=== PATIENT | female | born 1945 | race Caucasian/White ===

== ENCOUNTER 2016-04-28 09:13 | Inpatient (IN) | payer MEDICARE ==
[2016-04-24 15:36] LABS: BASOPHILS 0.4 %; BASOPHILS ABSOLUTE 0.02 10/3/uL (0.0-0.16); EOSINOPHILS 3.2 %; EOSINOPHILS ABSOLUTE 0.16 10/3/uL (0.0-0.53); HEMATOCRIT 37.1 % (36.0-48.0); IMMATURE GRANULOCYTES 0.2 %; IMMATURE GRANULOCYTES ABSOLUTE 0.01 10/3/uL (0.0-0.11); LYMPHOCYTES ABSOLUTE 1.99 10/3/uL (0.67-4.30); MEAN CORPUS HGB CONC 32.3 g/dL (32.0-36.0); MEAN CORPUSCULAR VOLUME 86.5 fL (80-100); MEAN PLATELET VOLUME 10.2 fL (9.2-13.0); MONOCYTES 15.5 %; MONOCYTES ABSOLUTE 0.77 10/3/uL (0.21-1.20); NEUTROPHILS 40.7 %; NEUTROPHILS ABSOLUTE 2.02 10/3/uL (2.02-8.40); PLATELET COUNT 151 10/3/uL (150-400); RBC DISTRIBUTION WIDTH 14.4 % (12.0-16.0); RED CELL COUNT 4.29 10/6/uL (4.0-5.6)
[2016-04-24 15:37] LABS: MANUAL DIFF NO %
[2016-04-24 15:50] LABS: INTERNATIONAL NORMAL RATI 1.1 UNITS (-); PROTIME (NOT ORD) 14.1 SEC (12.0-14.5)
[2016-04-24 15:54] LABS: % IRON SAT 32 % (20-50); ALBUMIN 3.2 G/DL (3.5-5.0); ALKALINE PHOSPHATASE 65 U/L (45-117); BUN (BLOOD UREA NITROGEN) 16 MG/DL (6-23); CALCIUM, SERUM 8.4 MG/DL (8.5-10.4); CHLORIDE, SERUM 109 MMOL/L (96-112); CO2 (CARBON DIOXIDE) 29 MMOL/L (24-34); CREATININE 0.86 MG/DL (0.55-1.02); GFR AFRICAN AMERICAN 78 ML/MIN (>=60); GFR NON AFRICAN AMERICAN 67 ML/MIN (>=60); GLOBULIN 3.1 G/DL (2.5-4.1); GLUCOSE, SERUM 113 MG/DL (60-99); IRON BINDING CAPACITY 298 MCG/DL (225-410); IRON, SERUM 96 MCG/DL (35-150); POTASSIUM, SERUM 3.6 MMOL/L (3.5-5.3); SGOT(AST) 18 U/L (5-40); SGPT(ALT) 23 U/L (5-65); SODIUM, SERUM 146 MMOL/L (135-148); TOTAL BILIRUBIN 0.5 MG/DL (0-1.2); TOTAL PROTEIN 6.3 G/DL (6.0-8.5)
[2016-04-24 16:15] LABS: ASCORBIC ACID (UR NOT ORDER) NEG (NEG); BILIRUBIN, URINE NEGATIVE (NEG); KETONE, URINE NEGATIVE (NEG); LEUKOCYTE ESTERASE(NOT OR NEG (NEG); WBC (NOT ORDERED) (RFLEX) 1 (0-5)
--- NOTE | ~2016-04-28 | DS ---
Discharge Summary [facility] [address] [place]. [address] NAME: JOHAN RODRÍGUEZ : 43 STATUS : DIS IN PAT#: [id number] AGE: 71 ADM/REG DATE : 04/28/16 MR#: [id number] REPORT SERV DATE: 05/09/16 DICTATED BY: KAYLI PATEL DATE: 05/08/16 REPORT STATUS : Draft TRANSCRIBED BY: FARA DATE: 05/08/16 Data Collection from hospitalization DISCHARGE DIAGNOSES: 1. Coronary artery disease, status post coronary artery bypass. 2. Hypertension. 3. Hyperlipidemia. 4. Hypothyroidism. 5. Diastolic heart failure. CONSULTATIONS: None. PROCEDURES PERFORMED: Coronary artery bypass grafting x5 using left mammary artery and saphenous vein from the right leg harvested endoscopically as graft and transesophageal echocardiogram on 04/28/2016. PATHOLOGY: Left mammary lymph node - benign lymph node with lipogranulomatous. No metastatic malignancy or lymphoproliferative neoplasm. MEDICATIONS: Vitamin C 1000 mg twice a day, aspirin 81 mg daily, Lipitor 40 mg at bedtime, Coreg 3.125 mg twice a day, vitamin D3 5000 units daily, Advil 200 mg every four hours as needed, Synthroid 50 mcg daily, fish oil 1600 mg daily, Percocet 5/325 one tablet every four hours as needed, and turmeric as instructed. She was instructed not to continue Imdur. CONDITION AT DISCHARGE: Stable. DISPOSITION: The patient was discharged home on an 1800-calorie low-cholesterol, low-sodium, cardiac/diabetic diet with no concentrated carbohydrates and activities as instructed. She would follow up with Kd Guaman on 05/29/2016. She would follow up with Dr. Crawley on 05/26/2016. She would follow up with Dr. Pineda Denton on 05/09/2016. HOSPITAL COURSE: This is a 71-year-old female who is very active. She has recently had some shortness of breath with activity and also has a positive family history of coronary artery disease and myocardial infarction. She had a positive stress echo and had undergone a cardiac catheterization. This had shown multivessel disease, severe distal left main stenosis, and [id number] LAD, circumflex first diagonal lesion obtuse marginal 1 plus the PDA the lesion, and ejection fraction was approximately 45% on the stress echo. It was felt that the patient would need to undergo coronary artery bypass grafting. She was admitted to the hospital at this time for further evaluation and treatment. Upon admission, she was taken to the operating room where she underwent the above-mentioned procedure. She tolerated this well, and there were no complications. On postop day #1, she was up sitting in a chair. She did have a decrease in heart rate with getting up. She was on the pacer. Anderson catheter was in place. Chest x-ray showed mild left base atelectasis. White count was 20. On 04/30/2016, her lungs were clear. Her abdomen was soft and nontender. Her incisions looked okay. She had no edema. She was transferred to the floor. Pacing wires were removed. The next day, she continued to do well. White count was 12.5. Discharge planning was performed. Leukocytosis was resolving. On 05/02/2016, she had no Discharge Summary [address] [address] NAME: JOHAN RODRÍGUEZ : 43 STATUS : DIS IN [facility]#: [id number] AGE: 71 ADM/REG DATE : 04/28/16 MR#: [id number] REPORT SERV DATE: 05/09/16 DICTATED BY: KAYLI PATEL DATE: 05/08/16 REPORT STATUS : Draft TRANSCRIBED BY: FARA DATE: 05/08/16 new complaints. She was breathing easily. She did have multiple bowel movements. Discharge instructions were given. Due to her improved and stable condition, she was discharged home with the above-stated instructions. Information collected by: Callie Lau I submit the above information as my discharge summary. TIFFANY/FARA Kayli Patel M.D. / [id number] CC: Gaby Larson D.O. F.A.C.P.
--- NOTE | ~2016-04-28 | OP ---
Record Of Operation [facility] [address] [place]. [address] NAME: JOHAN RODRÍGUEZ : 43 STATUS : DIS IN PAT#: [id number] AGE: 71 ADM/REG DATE : 04/28/16 MR#: [id number] REPORT SERV DATE: 05/27/16 DICTATED BY: KAYLI PATEL DATE: 05/27/16 REPORT STATUS : Draft TRANSCRIBED BY: MODJustin DATE: 05/27/16 DATE OF PROCEDURE: 04/28/2016 PREOPERATIVE DIAGNOSES: 1. Coronary artery disease with angina. 2. Hypertension. 3. Hyperlipidemia. 4. Hypothyroidism. POSTOPERATIVE DIAGNOSES: 1. Coronary artery disease with angina. 2. Hypertension. 3. Hyperlipidemia. 4. Hypothyroidism. PROCEDURE PERFORMED: 1. Coronary artery bypass grafting x5, left internal mammary artery placed to left anterior descending, reverse saphenous vein graft placed to first diagonal, reverse saphenous vein graft sequenced to the first obtuse marginal and the second obtuse marginal, reverse saphenous vein graft placed to the posterior descending artery. 2. Endoscopic vein harvest of the saphenous vein from right leg. 3. Transesophageal echocardiography. SURGEON: Kayli Patel M.D. ASSISTANTS: Taylor Dominguez and Ray Nicholas. ANESTHESIA: General with Dr. Villa. REVENUE ACCOUNTING MANAGER: Garcia Aguiar M.D. INDICATIONS: This is a 71-year-old female who has remained fairly active. She has had recent episodes of shortness of breath. She underwent echocardiogram that was abnormal and stress echo was performed, which was also abnormal. The patient was referred for cardiac catheterization, which Dr. Aguiar performed demonstrating multivessel disease with left main stenosis. Ventricular function was mildly reduced with an ejection fraction of 45%. We were asked to see the patient for possible coronary artery bypass grafting. We discussed the operation with the patient and her family. After discussion of the operation and its indications and risks, they wished to proceed. STS predicted mortality was 1% and morbidity and mortality of 8% were shared with the family. FINDINGS AT OPERATION: 1. Cross-clamp time of 68 minutes, total pump time 83 minutes. 2. The LAD was a 1.75 mm and mildly diseased vessel. A 2.5 mm TURNER was anastomosed to it with good runoff. 3. The first diagonal was 1.75 mm and mildly diseased. A 4 mm RSVG was anastomosed to it Record Of Operation [facility] [address] [place]. [address] NAME: JOHAN RODRÍGUEZ : 43 STATUS : DIS IN PAT#: [id number] AGE: 71 ADM/REG DATE : 04/28/16 MR#: [id number] REPORT SERV DATE: 05/27/16 DICTATED BY: KAYLI PATEL DATE: 05/27/16 REPORT STATUS : Draft TRANSCRIBED BY: FARA DATE: 05/27/16 with good runoff. 4. The first obtuse marginal was 1.75 mm and mildly diseased. A 4 mm RSVG was anastomosed in a [id number] fashion with good runoff. 5. The second obtuse marginal was 1.5 mm and mildly diseased. The end of the same 4 mm RSVG was anastomosed to it with good runoff. 6. The posterior descending artery was 1.75 mm and moderately diseased. A 4 mm RSVG was anastomosed to it with good runoff. 7. The vein quality was good and all grafts had good Doppler signal at the end of the case. 8. COTY demonstrated good ventricular function with no significant valvular pathology. PATHOLOGIC SPECIMENS: None. DESCRIPTION OF PROCEDURE: The patient was brought to the operating suite where general anesthesia was induced. Airway was secured with an endotracheal tube. Lines were secured by Anesthesia. Anderson catheter was placed. The patient's chest, abdomen, groin, and legs were prepped with Hibiclens and ChloraPrep and draped with Ioban sterile sheets. COTY probe was placed by Dr. Villa and examination carried out in my attendance. The saphenous vein was harvested from the right leg using endoscopic technique. Briefly, the vein was cut directly down upon through a 2 cm incision placed medial aspect of the right knee. Then, using VasoView trocars, the vessel was dissected from the surrounding subcutaneous tissue and fat. The side branches were identified, ligated, and divided with cautery. Once adequate length of vein had been dissected, a counterincision was made up in the groin and in the lower leg. The vein was ligated, divided, and brought through the knee incision. The vein quality was good and the leg wounds were made hemostatic and closed in layers with absorbable suture and skin closed in subcuticular fashion. Next, a midline sternal incision was made and the sternum opened with a saw. The left hemithorax was elevated and the endothoracic fascia was incised. The side branches of the HERMILO were clipped and divided. Once the HERMILO was completely dissected, the patient was anticoagulated with heparin and chest tube placed in the left pleural cavity. The HERMILO was clipped and divided distally. There was good flow through the HERMILO and its pedicle was infiltrated with papaverine. Next, the Catrachito retractor was placed in the pericardium over from innominate vein to the diaphragm where it was T'd and tacked to the side of the chest wall. Cannulation pursestring sutures were placed and cannulation was carried out in routine manner. A retrograde cardioplegia cannula was placed in the coronary sinus. When all was in readiness, the patient was placed on cardiopulmonary bypass. The distal targets were marked out on the heart as described in the findings. Then, a heart support was placed and the aorta was crossclamped. An initial dose of cold blood cardioplegia solution was given in a combination of antegrade and retrograde fashion and then in a retrograde manner following proximal anastomoses. Following the first dose of cardioplegia, the heart was positioned for the obtuse marginal Record Of Operation [address] [address] NAME: JOHAN RODRÍGUEZ : 43 STATUS : DIS IN PAT#: [id number] AGE: 71 ADM/REG DATE : 04/28/16 MR#: [id number] REPORT SERV DATE: 05/27/16 DICTATED BY: KAYLI PATEL DATE: 05/27/16 REPORT STATUS : Draft TRANSCRIBED BY: MODL DATE: 05/27/16 graft. Sequential grafting was planned. Arteriotomy was made in the first obtuse marginal. The vein graft was brought to the field. It was opened proximally and anastomosed in a side to-side fashion with a running suture of 7-0 Prolene to the first obtuse marginal vessel. Then, the second obtuse marginal vessel was opened and the vein graft was trimmed and anastomosed to this vessel in an end-to-side fashion with a running suture of 7-0 Prolene. This sequential graft was then measured back to the right side of the ascending aorta where it was divided and anastomosed to a 4.5 mm punch aortotomy with 6-0 Prolene. Another dose of cardioplegia was given and the heart was positioned for the diagonal graft. Arteriotomy was made and the vein graft was trimmed and anastomosed it with 7-0 Prolene. The vein graft was measured back to the left side of the ascending aorta where it was divided. We then positioned the heart for the posterior descending artery graft. Another arteriotomy was made. The vein graft was trimmed and anastomosed it with 7-0 Prolene. This vein graft was measured back to the right side of the ascending aorta where it was divided. Next, the proximal ends of these two vein grafts were anastomosed to a 4.5 mm punch aortotomy with 6-0 Prolene. Another dose of cardioplegia was given and the heart was positioned for the LAD graft. Warming was begun. Arteriotomy was made in the mid LAD. The HERMILO was brought out of the left chest through a notch in the pericardium over the pulmonary artery. The HERMILO was opened and anastomosed to the LAD with running suture of 8-0 Prolene. The endothoracic fascia was tacked to the epicardium. The patient was placed in Trendelenburg and final dose of warm blood cardioplegia was given in a retrograde fashion. Ventricular and atrial pacing wires were placed. Following the last dose of cardioplegia and de-airing of the aorta, the aortic cross-clamp was removed. The distal and proximal anastomoses were inspected and made hemostatic. Doppler demonstrated good flow through the grafts. The heart resumed a sinus rhythm spontaneously and was paced atrially at a rate of 80. Ventilation was begun when the heart demonstrated good contractility. It was allowed to fill and eject. When de-airing was completed, the patient was taken out of Trendelenburg and the ascending aortic vent removed and these pursestring sutures tied and reinforced. The patient weaned from cardiopulmonary bypass with minimal inotropic support. The venous cannulas were removed and these pursestring sutures tied. COTY examination demonstrated good ventricular function and no significant valvular pathology. Protamine was administered by Anesthesia, and following a period of hemodynamic stability, the aortic cannula was removed and these pursestring sutures tied and reinforced. The patient continued to do well and chest was irrigated copiously with saline. Meticulous hemostasis was obtained. Hemasorb was ordered placed along the cut edge of the sternum. Once hemostasis was assured, the pericardium was draped over the anterior surface of the heart and tacked into position. Doppler demonstrated good flow through the grafts following protamine administration. Then, chest tubes were placed and the sternum reapproximated with 8 sternal wires. The clavipectoral fascia and linea alba were closed #1 Stratafix as was subcutaneous tissue. The skin was closed in subcuticular fashion. The patient tolerated the procedure well. There were no complications. Sponge and needle Record Of [address] [address] NAME: JOHAN RODRÍGUEZ : 43 STATUS : DIS IN PAT#: [id number] AGE: 71 ADM/REG DATE : 04/28/16 MR#: [id number] REPORT SERV DATE: 05/27/16 DICTATED BY: KAYLI PATEL DATE: 05/27/16 REPORT STATUS : Draft TRANSCRIBED BY: FARA DATE: 05/27/16 counts were correct. DISPOSITION: The patient left intubated, sedated, and transported to the Intensive Care Unit in stable condition. KAITLIN/FARA Kayli Patel M.D. / [id number] CC: Gaby Larson Jr., M.D.
[~2016-04-28 09:13] MED LIST: ADVIL PO; ASAB PO; COREG3 PO; FISH-EPA1000 MG PO; IMDUR30 PO; LIPITOR40 PO; SYN.05 PO; VITAMIN D31000 UNIT PO; tumeric
[2016-04-28 18:47] LABS: BE (BASE EXCESS) 2.7 MEQ/L (0 +/- 2.5); CARBOXYHEMOGLOBIN 0.3 % (0-3); HCO3 (ACTUAL BICARBONATE) 26.3 MEQ/L (23-27); HEMOBLOGIN CONTENT 12.2 G/DL (12-16); INSTRUMENT SERIAL # 11843; METHEMOGLOBIN 0.7 % (0-3); MODE SIMV; O2 CONTENT 17.4 VOL% (18-24); PCO2 (CO2 TENSION) 37 MMHG (35-45); PO2 (O2 TENSION) 260 MMHG (79-93); SAMPLE Arterial; TIDAL VOLUME 500 ML; pH 7.47 (7.37-7.43)
[2016-04-28 19:19] LABS: HEMATOCRIT 34.1 % (36.0-48.0); HEMOGLOBIN 11.1 g/dL (12.0-16.0); PLATELET COUNT 112 10/3/uL (150-400)
[2016-04-28 19:26] LABS: INTERNATIONAL NORMAL RATI 1.5 UNITS (-); PARTIAL THROMBO TIME 33.7 SEC (22.5-37.2)
[2016-04-28 19:27] LABS: PROTIME (NOT ORD) 18.4 SEC (12.0-14.5)
[2016-04-28 19:34] LABS: BUN (BLOOD UREA NITROGEN) 13 MG/DL (6-23); CALCIUM, SERUM 8.7 MG/DL (8.5-10.4); CHLORIDE, SERUM 115 MMOL/L (96-112); CO2 (CARBON DIOXIDE) 27 MMOL/L (24-34); CREATININE 0.66 MG/DL (0.55-1.02); GFR AFRICAN AMERICAN 102 ML/MIN (>=60); GFR NON AFRICAN AMERICAN 88 ML/MIN (>=60); POTASSIUM, SERUM 3.3 MMOL/L (3.5-5.3); SODIUM, SERUM 150 MMOL/L (135-148)
[2016-04-28 19:35] LABS: GLUCOSE, SERUM 87 MG/DL (60-99)
[2016-04-29 00:41] LABS: HEMATOCRIT 32.4 % (36.0-48.0); HEMOGLOBIN 10.9 g/dL (12.0-16.0)
[2016-04-29 00:54] LABS: BUN (BLOOD UREA NITROGEN) 14 MG/DL (6-23); CALCIUM, SERUM 7.9 MG/DL (8.5-10.4); CHLORIDE, SERUM 117 MMOL/L (96-112); CO2 (CARBON DIOXIDE) 25 MMOL/L (24-34); CREATININE 0.77 MG/DL (0.55-1.02); GFR AFRICAN AMERICAN 89 ML/MIN (>=60); GFR NON AFRICAN AMERICAN 77 ML/MIN (>=60); SODIUM, SERUM 150 MMOL/L (135-148)
[2016-04-29 00:55] LABS: GLUCOSE, SERUM 120 MG/DL (60-99); POTASSIUM, SERUM 4.8 MMOL/L (3.5-5.3)
[2016-04-29 02:21] LABS: BE (BASE EXCESS) -2.3 MEQ/L (0 +/- 2.5); CARBOXYHEMOGLOBIN 0.3 % (0-3); INSTRUMENT SERIAL # 11843; METHEMOGLOBIN 0.8 % (0-3); PCO2 (CO2 TENSION) 42 MMHG (35-45); PO2 (O2 TENSION) 167 MMHG (79-93); pH 7.36 (7.37-7.43)
[2016-04-29 02:22] LABS: DEVICE NC; O2 CONTENT 16.7 VOL% (18-24); OPERATOR ID 13744; SAMPLE Arterial
[2016-04-29 04:37] LABS: BASOPHILS 0.1 %; BASOPHILS ABSOLUTE 0.01 10/3/uL (0.0-0.16); EOSINOPHILS 0 %; HEMATOCRIT 33.8 % (36.0-48.0); HEMOGLOBIN 11.1 g/dL (12.0-16.0); IMMATURE GRANULOCYTES 0.5 %; IMMATURE GRANULOCYTES ABSOLUTE 0.09 10/3/uL (0.0-0.11); LYMPHOCYTES 6.3 %; LYMPHOCYTES ABSOLUTE 1.25 10/3/uL (0.67-4.30); MEAN CORPUS HGB CONC 32.8 g/dL (32.0-36.0); MEAN CORPUSCULAR HEMOGLOB 28.5 pg (26.0-34.0); MEAN CORPUSCULAR VOLUME 86.9 fL (80-100); MEAN PLATELET VOLUME 11.4 fL (9.2-13.0); MONOCYTES 9.4 %; MONOCYTES ABSOLUTE 1.88 10/3/uL (0.21-1.20); NEUTROPHILS 83.7 %; NEUTROPHILS ABSOLUTE 16.77 10/3/uL (2.02-8.40); PLATELET COUNT 125 10/3/uL (150-400); RBC DISTRIBUTION WIDTH 14.5 % (12.0-16.0); RED CELL COUNT 3.89 10/6/uL (4.0-5.6)
[2016-04-29 04:39] LABS: MANUAL DIFF NO %
[2016-04-29 04:53] LABS: BUN (BLOOD UREA NITROGEN) 15 MG/DL (6-23); CALCIUM, SERUM 8.1 MG/DL (8.5-10.4); CHLORIDE, SERUM 116 MMOL/L (96-112); CO2 (CARBON DIOXIDE) 23 MMOL/L (24-34); CREATININE 0.73 MG/DL (0.55-1.02); GFR AFRICAN AMERICAN 95 ML/MIN (>=60); GFR NON AFRICAN AMERICAN 82 ML/MIN (>=60); GLUCOSE, SERUM 114 MG/DL (60-99); POTASSIUM, SERUM 4.2 MMOL/L (3.5-5.3); SODIUM, SERUM 149 MMOL/L (135-148)
[2016-04-29 16:47] LABS: HEMATOCRIT 30.7 % (36.0-48.0); HEMOGLOBIN 10.2 g/dL (12.0-16.0)
[2016-04-30 03:50] LABS: HEMATOCRIT 28.6 % (36.0-48.0); HEMOGLOBIN 9.3 g/dL (12.0-16.0); MEAN CORPUS HGB CONC 32.5 g/dL (32.0-36.0); MEAN CORPUSCULAR HEMOGLOB 28.4 pg (26.0-34.0); MEAN CORPUSCULAR VOLUME 87.5 fL (80-100); MEAN PLATELET VOLUME 11.7 fL (9.2-13.0); PLATELET COUNT 112 10/3/uL (150-400); RBC DISTRIBUTION WIDTH 15.1 % (12.0-16.0); RED CELL COUNT 3.27 10/6/uL (4.0-5.6); WHITE BLOOD CELLS 17.8 10/3/uL (4.5-10.5)
[2016-04-30 03:51] LABS: MANUAL DIFF YES %
[2016-04-30 04:11] LABS: CALCIUM, SERUM 8.3 MG/DL (8.5-10.4); CHLORIDE, SERUM 110 MMOL/L (96-112); CO2 (CARBON DIOXIDE) 24 MMOL/L (24-34); CREATININE 0.81 MG/DL (0.55-1.02); GFR AFRICAN AMERICAN 84 ML/MIN (>=60); GFR NON AFRICAN AMERICAN 73 ML/MIN (>=60); GLUCOSE, SERUM 119 MG/DL (60-99); POTASSIUM, SERUM 4.5 MMOL/L (3.5-5.3); SODIUM, SERUM 143 MMOL/L (135-148)
[2016-04-30 04:15] LABS: BAND NEUTROPHILS 1 %; LYMPHOCYTES 8 %; LYMPHOCYTES ABSOLUTE (CALC) 1.42 10/3/uL (0.67-4.30); MONOCYTES 6 %; MONOCYTES ABSOLUTE (CALC) 1.07 10/3/uL (0.21-1.20); NEUTROPHILS ABSOLUTE (CALC) 15.31 10/3/uL (2.02-8.40); PLATELET ESTIMATE SLT DEC (ADEQUATE); RBC MORPHOLOGY NORM (NORMAL); SEGMENTED NEUTROPHIL (0) 85 %; TOTAL NUCLEATED CELLS 100
[2016-04-30 04:16] LABS: BUN (BLOOD UREA NITROGEN) 27 MG/DL (6-23)
[2016-04-30 15:10] LABS: BASOPHILS 0.1 %; BASOPHILS ABSOLUTE 0.01 10/3/uL (0.0-0.16); EOSINOPHILS 0 %; HEMATOCRIT 28.8 % (36.0-48.0); HEMOGLOBIN 9.4 g/dL (12.0-16.0); IMMATURE GRANULOCYTES 0.3 %; IMMATURE GRANULOCYTES ABSOLUTE 0.05 10/3/uL (0.0-0.11); LYMPHOCYTES 11.3 %; LYMPHOCYTES ABSOLUTE 1.69 10/3/uL (0.67-4.30); MEAN CORPUS HGB CONC 32.6 g/dL (32.0-36.0); MEAN CORPUSCULAR VOLUME 88.9 fL (80-100); MEAN PLATELET VOLUME 11.3 fL (9.2-13.0); MONOCYTES 17.9 %; MONOCYTES ABSOLUTE 2.68 10/3/uL (0.21-1.20); NEUTROPHILS 70.4 %; NEUTROPHILS ABSOLUTE 10.57 10/3/uL (2.02-8.40); PLATELET COUNT 97 10/3/uL (150-400); RBC DISTRIBUTION WIDTH 15.3 % (12.0-16.0); RED CELL COUNT 3.24 10/6/uL (4.0-5.6)
[2016-04-30 15:11] LABS: MANUAL DIFF NO %
[2016-05-01 05:10] LABS: WHITE BLOOD CELLS 12.5 10/3/uL (4.5-10.5)
[2016-05-01 05:11] LABS: HEMATOCRIT 27.7 % (36.0-48.0); HEMOGLOBIN 8.9 g/dL (12.0-16.0); MEAN CORPUS HGB CONC 32.1 g/dL (32.0-36.0); MEAN CORPUSCULAR HEMOGLOB 27.7 pg (26.0-34.0); MEAN CORPUSCULAR VOLUME 86.3 fL (80-100); MEAN PLATELET VOLUME 11.5 fL (9.2-13.0); PLATELET COUNT 99 10/3/uL (150-400); RBC DISTRIBUTION WIDTH 15.4 % (12.0-16.0); RED CELL COUNT 3.21 10/6/uL (4.0-5.6)
[2016-05-01 05:18] LABS: MANUAL DIFF YES %
[2016-05-01 05:32] LABS: BUN (BLOOD UREA NITROGEN) 24 MG/DL (6-23); CALCIUM, SERUM 8.1 MG/DL (8.5-10.4); CHLORIDE, SERUM 106 MMOL/L (96-112); GFR AFRICAN AMERICAN 100 ML/MIN (>=60); GFR NON AFRICAN AMERICAN 87 ML/MIN (>=60); GLUCOSE, SERUM 123 MG/DL (60-99); POTASSIUM, SERUM 4.1 MMOL/L (3.5-5.3); SODIUM, SERUM 143 MMOL/L (135-148)
[2016-05-01 05:34] LABS: CO2 (CARBON DIOXIDE) 31 MMOL/L (24-34)
[2016-05-01 06:41] LABS: BAND NEUTROPHILS 8 %; EOSINOPHILS 2 %; EOSINOPHILS ABSOLUTE (CALC) 0.25 10/3/uL (0.0-0.53); LYMPHOCYTES 11 %; LYMPHOCYTES ABSOLUTE (CALC) 1.38 10/3/uL (0.67-4.30); MONOCYTES 21 %; MONOCYTES ABSOLUTE (CALC) 2.63 10/3/uL (0.21-1.20); NEUTROPHILS ABSOLUTE (CALC) 8.25 10/3/uL (2.02-8.40); PLATELET ESTIMATE DEC (ADEQUATE); POLYCHROMASIA 1+ (2-5/OIF) (0-1/OIF); SEGMENTED NEUTROPHIL (0) 58 %; TEARDROP SHAPED RBCS OCC (0-2/OIF); TOTAL NUCLEATED CELLS 100
[2016-05-02 06:29] LABS: BUN (BLOOD UREA NITROGEN) 14 MG/DL (6-23); CALCIUM, SERUM 8.4 MG/DL (8.5-10.4); CHLORIDE, SERUM 109 MMOL/L (96-112); CO2 (CARBON DIOXIDE) 32 MMOL/L (24-34); CREATININE 0.61 MG/DL (0.55-1.02); GFR AFRICAN AMERICAN 105 ML/MIN (>=60); GFR NON AFRICAN AMERICAN 91 ML/MIN (>=60); GLUCOSE, SERUM 121 MG/DL (60-99); POTASSIUM, SERUM 3.7 MMOL/L (3.5-5.3); SODIUM, SERUM 147 MMOL/L (135-148)
[2016-05-02] MEDS ORDERED: VITC500 PO (09:07)
[2016-05-02] MEDS ORDERED: PCET PO (09:10)
== END 2016-05-02 12:09 | disposition home or self-care (01) | DRG 236 ==
LOC: SDC/OF 09:13 → CVICU 18:02 → 5NO 04-30 15:40
PROVIDERS: Thoracic Surgery (Cardiothoracic Vascular Surgery)
PROC: 06BP4ZZ Excision of Right Saphenous Vein, Percutaneous Endoscopic Approach (ICD-10-PCS; 2016-04-28)
PROC: B246ZZ4 Ultrasonography of Right and Left Heart, Transesophageal (ICD-10-PCS; 2016-04-28)
PROC: 5A1221Z Performance of Cardiac Output, Continuous (ICD-10-PCS; 2016-04-28)
PROC: 021309W Bypass Coronary Artery, Four or More Arteries from Aorta with Autologous Venous Tissue, Open Approach (ICD-10-PCS; principal; 2016-04-28 14:30)
PROC: 02100Z9 Bypass Coronary Artery, One Artery from Left Internal Mammary, Open Approach (ICD-10-PCS; 2016-04-28 14:30)
DX: I25.119 Atherosclerotic heart disease of native coronary artery with unspecified angina pectoris (principal); I50.32 Chronic diastolic (congestive) heart failure; I10 Essential (primary) hypertension; E78.5 Hyperlipidemia, unspecified; E03.9 Hypothyroidism, unspecified; Z79.899 Other long term (current) drug therapy; Z90.710 Acquired absence of both cervix and uterus; Z85.3 Personal history of malignant neoplasm of breast; Z82.49 Family history of ischemic heart disease and other diseases of the circulatory system; Z82.3 Family history of stroke; Z88.2 Allergy status to sulfonamides; Z88.8 Allergy status to other drugs, medicaments and biological substances; Z79.82 Long term (current) use of aspirin
CPT/HCPCS: 36415; 71010; 71020; 80048; 80053; 81001; 82330; 82803; 82805; 82947; 82962; 83036; 83540; 83550; 83735; 84132; 84295; 85014; 85018; 85025; 85049; 85347; 85610; 85730; 86850; 86900; 86901; 86920; 87641; 88305; 93005; 93312; 93320; 93325; 94002; 94640; 94660; 94770; A9270-GY; C1713; C1769; J0690; J1644; J1940; J2150; J2250; J2370; J2405; J2440; J2720; J2795; J2930; J3010; J3475; J3480; P9045; P9047